=== PATIENT | male | born 1955 | race African-American/Black ===

== ENCOUNTER 2018-01-28 10:23 | Outpatient (CLI) | payer OTHER ==
--- NOTE | 2018-01-28 12:57 | CT ---
LOW DOSE SCREENING LUNG CT: HISTORY: The patient has smoked for 30 years. The patient is currently still smoking. COMPARISON: None. CORRELATION: CT angiogram of the chest 12/20/14. TECHNIQUE: Noncontrast low-dose screening CT is performed following institution protocol. FINDINGS: Lung screening specific (lung RADS category): category 1; negative. No evidence of primary lung canc er. Lung RADS category S: Enlarged left axillary lymph node measures 1.7 x 2.1 cm. Enlarged bilateral a xillary lymph nodes. Enlarged right axillary lymph node measures 2.5 x 2.1 cm. Pulmonary Incidentals: Calcified granuloma in the lingula. Other Incidentals: There is evidence of cholelithiasis. IMPRESSION: 1. Lung RADS category 1: Negative. No evidence of prior lung cancer. 2. Lung RADS category S: There are enlarged bilateral axillary lymph nodes. Clinical correlation i s essential. Ultrasound-guided biopsy may be beneficial. The possibility of a malignant or metastat ic process cannot be excluded. 3. Other incidentals as above. RECOMMENDATIONS: Further workup for bilateral enlarged axillary lymph nodes. CODE T POS: [facility]
== END 2018-01-28 10:24 | disposition home or self-care (01) ==
LOC: CT 10:23
PROVIDERS: ATTEND Family Medicine
DX: F17.210 Nicotine dependence, cigarettes, uncomplicated (principal); R59.0 Localized enlarged lymph nodes
CPT/HCPCS: G0297

== ENCOUNTER 2019-01-27 08:47 | Outpatient (CLI) | payer MEDICARE, MEDICAID ==
--- NOTE | 2019-01-27 09:13 | ULT ---
ABDOMINAL AORTIC ULTRASOUND: Grayscale and Doppler color flow imaging performed CLINICAL HISTORY: Abdominal aortic aneurysm screening evaluation FINDINGS: Mild atherosclerotic irregularity of the imaged aorta is present. There is no evidence of abdominal a ortic aneurysmal dilatation. The proximal aortic diameter is 2.4 x 1.7 cm, the mid abdominal aorta is 1.8 x 1.6 cm, and the distal abdominal aorta is 1.7 x 1.5 cm. Imaged iliac arteries are nonaneurys mal. IMPRESSION: No aneurysmal dilatation of the abdominal aorta. Transcribed Date/Time: 01/27/2019 9:34 AM
== END 2019-01-27 08:48 | disposition home or self-care (01) ==
LOC: BICULT 08:47
PROVIDERS: ATTEND Family Medicine
DX: Z13.6 Encounter for screening for cardiovascular disorders (principal)
CPT/HCPCS: 76706

== ENCOUNTER 2019-02-02 09:27 | Outpatient (CLI) | payer MEDICARE, MEDICAID ==
--- NOTE | 2019-02-02 10:08 | CT ---
CT Pulmonary Lung Scan History: [Nicotine dependence. Current smoker.] Comparison: CT chest January 28, 2018. Findings: Lung screening specific (Lung-RADS): 3 mm perifissural nodule along the right minor fissure , similar. Calcified granuloma within the lingula. There is accessory lingular fissure. No suspicious pulmonary nodules. Potentially significant incidentals ( Lung-RADS category S): Interval enlargement of bilateral axilla ry adenopathy. Previously measured 2.1 x 2.5 cm right axillary lymph node measures 3.1 x 3 cm. Mildly enlarged right paratracheal lymph nodes measure up to a millimeter in short axis. Pulmonary incidentals: Mild centrilobular emphysema. Scarring in the lung apices. No pneumothorax or effusion. Other incidentals: There is cholelithiasis. Adrenal glands are unremarkable. No pericardial effusion. Aortic contour is not dilated. Impression: 1. Lung RADS category 2: Benign appearance or behavior. Recommend follow-up low dose chest screening CT in 12 months. 2. Slightly enlarging bilateral axillary lymph nodes with new paratracheal adenopathy. Workup for lym phoproliferative disorder is recommended.
== END 2019-02-02 09:28 | disposition home or self-care (01) ==
LOC: CT 09:27
PROVIDERS: ATTEND Family Medicine
DX: Z12.2 Encounter for screening for malignant neoplasm of respiratory organs (principal); F17.210 Nicotine dependence, cigarettes, uncomplicated; R59.0 Localized enlarged lymph nodes
CPT/HCPCS: G0297

== ENCOUNTER 2021-04-11 09:32 | Outpatient (CLI) | payer MEDICARE, MEDICAID | END 2021-04-11 09:33 | disposition home or self-care (01) | LOC: BICCT 09:32 | PROVIDERS: ATTEND Family Medicine | DX: Z12.2 Encounter for screening for malignant neoplasm of respiratory organs (principal); F17.210 Nicotine dependence, cigarettes, uncomplicated; R59.0 Localized enlarged lymph nodes; K80.20 Calculus of gallbladder without cholecystitis without obstruction; J43.9 Emphysema, unspecified | CPT/HCPCS: 71271 ==

== ENCOUNTER 2022-08-20 13:42 | Outpatient (CLI) | payer OTHER | END 2022-08-20 13:43 | disposition home or self-care (01) | LOC: BICCT 13:42 | PROVIDERS: ATTEND Family Medicine | DX: Z12.2 Encounter for screening for malignant neoplasm of respiratory organs (principal); F17.210 Nicotine dependence, cigarettes, uncomplicated | CPT/HCPCS: 71271 ==